=== PATIENT | female | born 1930 | race Caucasian/White ===

== ENCOUNTER 2019-12-28 10:59 | Inpatient (IN) ==
[2019-12-28] MEDS ORDERED: Albuterol/Ipratropium NEB.SOL (2.5/0.5 MG) 3 ML NEB.SOLN INH ONE (11:42)
[2019-12-28 11:52] LABS: ABS Basophils 0.1 10^3/ul (0-0.2); ABS Eosinophils 0.1 10^3/ul (0-0.6); ABS Lymphocytes 0.9 10^3/ul (1.0-4.8); ABS Monocytes 0.3 10^3/ul (0-0.8); ABS Neutrophils 7.7 10^3/ul (1.5-7.7); Eosinophil % 0.7 %; Hematocrit 38 % (35-47); Hemoglobin 12.9 g/dL (12.0-16.0); Lymphocyte % 10.1 %; Mean Corpuscular HGB Conc 34 g/dL (31-36); Mean Corpuscular Hemoglobin 29 pg (27-31); Mean Corpuscular Volume 85 fL (80-97); Mean Platelet Volume 10.1 fL (7.4-10.4); Platelet Count 165 10^3/uL (150-450); Red Cell Distribution Width 15 % (10-15)
[2019-12-28 12:09] LABS: ALT 30 U/L (7-52); AST 47 U/L (13-39); Albumin 4.6 g/dL (3.2-5.2); Albumin/Globulin Ratio 1.9 (1-3); Alkaline Phosphatase 77 U/L (34-104); Anion Gap 7 mmol/L (2-11); BUN/Creatinine Ratio 18.8 (8-20); Blood Urea Nitrogen 18 mg/dL (6-24); CO2 Carbon Dioxide 27 mmol/L (22-32); Calcium 9.6 mg/dL (8.6-10.3); Chloride 101 mmol/L (101-111); EGFR African American 66.5 (>60); Globulin 2.4 g/dL (2-4); Glucose 129 mg/dL (70-100); Potassium 4.4 mmol/L (3.5-5.0); Sodium 135 mmol/L (135-145)
[2019-12-28 12:14] LABS: Troponin I 6.19 ng/mL (<0.03)
[2019-12-28] MEDS ORDERED: Heparin - STEMI 5,000 UNITS/ML 1 ml VIAL IV ONE (12:24)
[2019-12-28 12:39] LABS: C Reactive Protein 1.72 mg/L (<8.01)
[2019-12-28] MEDS ORDERED: Heparin DRIP 25,000 UNITS BAG 25,000 UNITS/500 ML BAG IV SCH (13:15)
[2019-12-28] MEDS ORDERED: Albuterol/Ipratropium NEB.SOL (2.5/0.5 MG) 3 ML NEB.SOLN INH PRN (13:36)
[2019-12-28 13:42] LABS: ABS Basophils 0.1 10^3/ul (0-0.2); ABS Monocytes 0.5 10^3/ul (0-0.8); ABS Neutrophils 12.4 10^3/ul (1.5-7.7); Eosinophil % 0.3 %; Hematocrit 37 % (35-47); Lymphocyte % 7.2 %; Mean Corpuscular HGB Conc 33 g/dL (31-36); Mean Corpuscular Hemoglobin 28 pg (27-31); Mean Corpuscular Volume 86 fL (80-97); Mean Platelet Volume 10.1 fL (7.4-10.4); Platelet Count 173 10^3/uL (150-450); Red Cell Distribution Width 15 % (10-15)
[2019-12-28] MEDS ORDERED: Perflutren Lipid Microsphere 3 ML VIAL ONE (13:58)
[2019-12-28 13:59] LABS: EGFR African American 67.3 (>60); EGFR Non-African American 55.6 (>60)
[2019-12-28] MEDS ORDERED: nitroGLYCERIN DRIP 25,000 MCG/250 ML BTL IV ONE (14:44)
[2019-12-28] MEDS ORDERED: Furosemide 20 mg/2 ml IV VIAL IV SLOW PU ONE (14:51)
[2019-12-28 15:01] LABS: Troponin I 7.04 ng/mL (<0.03)
[2019-12-28 15:19] LABS: Activated Partial Thrombo Time >240.0 seconds (26.0-38.0)
[2019-12-28 15:29] LABS: Erythrocyte Sed Rate 19 mm/Hr (0-29)
[2019-12-28 17:20] LABS: Urine Appearance Clear; Urine Bilirubin Negative (Negative); Urine Blood Negative (Negative); Urine Color Yellow; Urine Glucose Negative (Negative); Urine Ketones Negative (Negative); Urine Nitrite Negative (Negative); Urine Protein Negative (Negative); Urine Specific Gravity 1.009 (1.010-1.030); Urine Urobilinogen Negative (Negative)
[2019-12-28 18:41] LABS: Troponin I 5.95 ng/mL (<0.03)
[2019-12-28 21:27] LABS: Troponin I 6.36 ng/mL (<0.03)
[2019-12-29 01:07] LABS: Troponin I 6.06 ng/mL (<0.03)
[2019-12-29 05:55] LABS: ABS Eosinophils 0.1 10^3/ul (0-0.6); ABS Lymphocytes 1.2 10^3/ul (1.0-4.8); ABS Monocytes 0.8 10^3/ul (0-0.8); ABS Neutrophils 9.3 10^3/ul (1.5-7.7); Eosinophil % 0.9 %; Hematocrit 31 % (35-47); Hemoglobin 10.6 g/dL (12.0-16.0); Lymphocyte % 10.3 %; Mean Corpuscular HGB Conc 34 g/dL (31-36); Mean Corpuscular Hemoglobin 29 pg (27-31); Mean Corpuscular Volume 85 fL (80-97); Platelet Count 156 10^3/uL (150-450); Red Blood Count 3.67 10^6 /uL (3.70-4.87); Red Cell Distribution Width 14 % (10-15); White Blood Count 11.5 10^3/uL (3.5-10.8)
[2019-12-29 06:11] LABS: BUN/Creatinine Ratio 19.8 (8-20); Calcium 8.9 mg/dL (8.6-10.3); EGFR African American 62.7 (>60); EGFR Non-African American 51.8 (>60); Magnesium 2.2 mg/dL (1.9-2.7)
[2019-12-29] MEDS ORDERED: Furosemide 20 mg/2 ml IV VIAL IV ONE (08:36)
[2019-12-29] MEDS ORDERED: Aspirin EC 81 mg TAB.EC (enteric coated) PO SCH (09:00)
[2019-12-29] MEDS ORDERED: diPHENhydraMINE 25 mg TAB PO PRN (11:08)
[2019-12-29] MEDS ORDERED: Lidocaine 1% VIAL 10 MG/ML VIAL ONE (11:38)
[2019-12-29] MEDS ORDERED: Iodixanol 320 (CONTRAST) 100 ML SDV ONE ×2 (11:38)
[2019-12-29] MEDS ORDERED: Heparin 2 UNITS/ML 1000 mls 2,000 ML IV ONE (11:38)
[2019-12-29] MEDS ORDERED: fentaNYL 100 mcg/2 ml 50 MCG/ML VIAL ONE (11:40)
[2019-12-29] MEDS ORDERED: Heparin 1,000 UNIT/ML 10 ml (10,000 UNITS) CATHLAB/DIALYSIS ONE (11:40)
[2019-12-29] MEDS ORDERED: nitroGLYCERIN DRIP 25,000 MCG/250 ML BTL ONE (11:40)
[2019-12-29] MEDS ORDERED: Midazolam 5 mg/5 ml VIAL 1 mg/ml 5 ml VIAL (5 mg) ONE (11:40)
[2019-12-29] MEDS ORDERED: VERAPAMIL 2.5 MG/ML 2 ML VIAL ** 5 mg/2 ml ONE (11:40)
[2019-12-29] MEDS ORDERED: NS 0.9% 1000 ml BAG 1,000 ML IV SCH (12:30)
[2019-12-29 17:19] VITALS: BP 128/69
== END 2019-12-29 18:20 | disposition short-term general hospital (02) | DRG 286 ==
LOC: ED 10:59 → ICU 13:32
PROVIDERS: ADMIT Hospitalist; ATTEND Surgery Surgical Critical Care

== ENCOUNTER 2020-03-17 21:35 | Inpatient (IN) ==
[2020-03-17] MEDS ORDERED: methylPREDNISolone 125 mg 2 ML VIAL IV ONE (22:22)
[2020-03-17] MEDS ORDERED: Albuterol 0.5% CONC NEB.SOL 5 mg/ml 20 ml BOT INH ONE (22:22)
[2020-03-17 23:38] LABS: ABS Eosinophils 0.1 10^3/ul (0-0.6); ABS Lymphocytes 1.1 10^3/ul (1.0-4.8); ABS Neutrophils 10.2 10^3/ul (1.5-7.7); Eosinophil % 0.9 %; Hematocrit 32 % (35-47); Hemoglobin 10.5 g/dL (12.0-16.0); Lymphocyte % 9.2 %; Mean Corpuscular HGB Conc 33 g/dL (31-36); Mean Corpuscular Hemoglobin 28 pg (27-31); Mean Corpuscular Volume 84 fL (80-97); Mean Platelet Volume 10.3 fL (7.4-10.4); Platelet Count 181 10^3/uL (150-450); Red Blood Count 3.77 10^6 /uL (3.70-4.87); Red Cell Distribution Width 16 % (10-15); White Blood Count 12.5 10^3/uL (3.5-10.8)
[2020-03-17 23:55] LABS: Albumin 4.3 g/dL (3.2-5.2); Albumin/Globulin Ratio 1.8 (1-3); Calcium 9.7 mg/dL (8.6-10.3); EGFR African American 80.9 (>60); EGFR Non-African American 66.9 (>60); Globulin 2.4 g/dL (2-4); Potassium 4.1 mmol/L (3.5-5.0); Total Bilirubin 0.6 mg/dL (0.2-1.0); Total Protein 6.7 g/dL (6.4-8.9)
[2020-03-17 23:56] LABS: Troponin I 0.01 ng/mL (<0.03)
[2020-03-17] MEDS ORDERED: Albuterol HFA INHALER 8 gm MDI INH ONE (23:57)
[2020-03-18] MEDS ORDERED: Furosemide 40 mg/4 ml IV VIAL IV ONE (04:55)
[2020-03-18] MEDS ORDERED: Albuterol HFA INHALER 8 gm MDI INH PRN (05:00)
[2020-03-18] MEDS: Albuterol/Ipratropium NEB.SOL (2.5/0.5 MG) 3 ML NEB.SOLN INH PRN ×2 (07:01→17:50)
[2020-03-18] MEDS ORDERED: methylPREDNISolone SOD 40 mg/ml 1 ml VIAL IV SCH (08:00)
[2020-03-18] MEDS: Tiotropium Brom/Olodaterol MDI INH SCH (10:27)
[2020-03-18] MEDS: Fluticasone NASAL SPRAY 50MCG 16 gm SPRAY BTL BOTH NARES SCH (10:59)
[2020-03-18 11:55] LABS: BUN/Creatinine Ratio 15.9 (8-20); Calcium 9.7 mg/dL (8.6-10.3); EGFR African American 73.5 (>60); EGFR Non-African American 60.8 (>60); Potassium 4.5 mmol/L (3.5-5.0)
[2020-03-18] MEDS: Aspirin EC 81 mg TAB.EC (enteric coated) PO SCH (13:06)
[2020-03-18] MEDS: Mupirocin 2% OINT TUBE TOPICAL SCH ×2 (13:06→20:58)
[2020-03-19 06:31] LABS: ABS Lymphocytes 0.7 10^3/ul (1.0-4.8); ABS Monocytes 1.1 10^3/ul (0-0.8); Eosinophil % 0.2 %; Hematocrit 26 % (35-47); Lymphocyte % 6.2 %; Mean Corpuscular HGB Conc 35 g/dL (31-36); Mean Corpuscular Hemoglobin 28 pg (27-31); Mean Corpuscular Volume 82 fL (80-97); Mean Platelet Volume 10.1 fL (7.4-10.4); Platelet Count 164 10^3/uL (150-450); Red Blood Count 3.17 10^6 /uL (3.70-4.87); Red Cell Distribution Width 16 % (10-15); White Blood Count 10.9 10^3/uL (3.5-10.8)
[2020-03-19 06:46] LABS: Calcium 8.8 mg/dL (8.6-10.3); EGFR Non-African American 49.6 (>60); Potassium 4.1 mmol/L (3.5-5.0)
[2020-03-19] MEDS: Tiotropium Brom/Olodaterol MDI INH SCH (08:04)
[2020-03-19] MEDS: Fluticasone NASAL SPRAY 50MCG 16 gm SPRAY BTL BOTH NARES SCH (08:23)
[2020-03-19] MEDS: Aspirin EC 81 mg TAB.EC (enteric coated) PO SCH (08:23)
[2020-03-19] MEDS: Mupirocin 2% OINT TUBE TOPICAL SCH (08:24)
[2020-03-19 11:54] VITALS: BP 112/52
== END 2020-03-19 12:28 | disposition home or self-care (01) | DRG 292 ==
LOC: ED 21:35 → MED 03-18 08:22
PROVIDERS: ADMIT Internal Medicine; ATTEND Internal Medicine

== ENCOUNTER 2020-07-03 07:18 | Observation (INO) ==
[2020-07-03] MEDS ORDERED: Albuterol/Ipratropium NEB.SOL (2.5/0.5 MG) 3 ML NEB.SOLN ONE (07:24)
[2020-07-03] MEDS ORDERED: Albuterol/Ipratropium NEB.SOL (2.5/0.5 MG) 3 ML NEB.SOLN INH ONE (07:24)
[2020-07-03] MEDS ORDERED: methylPREDNISolone 125 mg 2 ML VIAL ONE (07:24)
[2020-07-03] MEDS ORDERED: methylPREDNISolone 125 mg 2 ML VIAL IV ONE (07:24)
[2020-07-03] MEDS ORDERED: Rocuronium 50 mg VIAL 10 mg/ml 5 ml VIAL (50 mg) ONE (07:44)
[2020-07-03] MEDS ORDERED: Succinylcholine 200 mg VIAL 20 mg/ml 10 ml VIAL (200 mg) ONE (07:44)
[2020-07-03 07:49] LABS: ABS Eosinophils 0.1 10^3/ul (0-0.6); ABS Lymphocytes 0.7 10^3/ul (1.0-4.8); ABS Monocytes 0.6 10^3/ul (0-0.8); ABS Neutrophils 12.2 10^3/ul (1.5-7.7); Eosinophil % 0.9 %; Hematocrit 31 % (35-47); Hemoglobin 10.2 g/dL (12.0-16.0); Lymphocyte % 5.3 %; Mean Corpuscular HGB Conc 33 g/dL (31-36); Mean Corpuscular Hemoglobin 27 pg (27-31); Mean Corpuscular Volume 83 fL (80-97); Mean Platelet Volume 9.5 fL (7.4-10.4); Platelet Count 210 10^3/uL (150-450); Red Blood Count 3.73 10^6 /uL (3.70-4.87); Red Cell Distribution Width 17 % (10-15); White Blood Count 13.7 10^3/uL (3.5-10.8)
[2020-07-03 08:05] LABS: ALT 22 U/L (7-52); Albumin 3.8 g/dL (3.2-5.2); Albumin/Globulin Ratio 1.4 (1-3); Alkaline Phosphatase 118 U/L (34-104); BUN/Creatinine Ratio 14.3 (8-20); Blood Urea Nitrogen 13 mg/dL (6-24); CO2 Carbon Dioxide 25 mmol/L (22-32); Calcium 8.7 mg/dL (8.6-10.3); Chloride 88 mmol/L (101-111); EGFR African American 70.8 (>60); EGFR Non-African American 58.5 (>60); Globulin 2.7 g/dL (2-4); Glucose 123 mg/dL (70-100); Sodium 121 mmol/L (135-145); Total Protein 6.5 g/dL (6.4-8.9)
[2020-07-03] MEDS ORDERED: Furosemide 40 mg/4 ml IV VIAL IV SLOW PU ONE (08:23)
[2020-07-03 08:44] LABS: Anion Gap 8 mmol/L (2-11); Troponin I 0.03 ng/mL (<0.03)
[2020-07-03 09:07] LABS: Potassium Redraw 3.5 mmol/L (3.5-5.0)
[2020-07-03] MEDS ORDERED: Ondansetron 4 mg VIAL 2 MG/ML 2 ml VIAL IV PRN (10:03)
[2020-07-03] MEDS ORDERED: Albuterol 2.5mg/3 ml (0.083%) NEB.SOLN INH PRN (10:03)
[2020-07-03] MEDS ORDERED: Acetaminop/Codeine 300mg/30mg TAB PO PRN (10:15)
[2020-07-03] MEDS ORDERED: AZELASTINE 0.15% BOTH NARES PRN (10:15)
[2020-07-03] MEDS ORDERED: Albuterol HFA INHALER 8 gm MDI INH PRN (10:31)
[2020-07-03 10:51] LABS: C Reactive Protein 10.08 mg/L (<8.01)
[2020-07-03 11:04] LABS: Urine Appearance Cloudy; Urine Bilirubin Negative (Negative); Urine Blood Negative (Negative); Urine Color Yellow; Urine Glucose Negative (Negative); Urine Ketones Negative (Negative); Urine Nitrite Negative (Negative); Urine Protein Negative (Negative); Urine Specific Gravity 1.006 (1.010-1.030); Urine Urobilinogen Negative (Negative)
[2020-07-03 11:11] LABS: Ur Urea Nitrogen Concentration 316 mg/dL; Urine Bacteria Absent (Absent); Urine Creatinine Concentration 49.44 mg/dL; Urine Red Blood Cell Absent (Absent); Urine Sodium Concentration < 18 mmol/L; Urine Squamous Epithelial Cell Present (Absent); Urine White Blood Cell Trace(0-5/hpf) (Absent)
[2020-07-03 11:48] LABS: % Iron Saturation 13 % (15-55); Iron 40 ug/dL (50-212); Total Iron Binding Capacity 301 mcg/dL (250-450); Transferrin 215 mg/dL (203-362); Unsaturated Iron Binding < 286 ug/dL
[2020-07-03 12:08] LABS: Ferritin 80.3 ng/mL (11-307)
[2020-07-03 12:10] LABS: Anion Gap 10 mmol/L (2-11); BUN/Creatinine Ratio 13.7 (8-20); Blood Urea Nitrogen 13 mg/dL (6-24); CO2 Carbon Dioxide 26 mmol/L (22-32); Chloride 90 mmol/L (101-111); EGFR African American 67.3 (>60); EGFR Non-African American 55.6 (>60); Glucose 181 mg/dL (70-100); Potassium 3.6 mmol/L (3.5-5.0); Sodium 126 mmol/L (135-145)
[2020-07-03 12:18] LABS: Troponin I 0.03 ng/mL (<0.03)
[2020-07-03] MEDS: DOXYcycline 100 MG in NS 0.9% 250 ml 250 ML IVPB SCH ×2 (13:12→23:49)
[2020-07-03] MEDS: Enoxaparin 40 MG/0.4 ML SYR SUBCUT SCH (13:13)
[2020-07-03] MEDS: Albuterol/Ipratropium NEB.SOL (2.5/0.5 MG) 3 ML NEB.SOLN INH SCH ×4 (14:28→23:02)
[2020-07-04] MEDS: Albuterol/Ipratropium NEB.SOL (2.5/0.5 MG) 3 ML NEB.SOLN INH SCH ×3 (03:26→11:22)
[2020-07-04 07:40] LABS: ABS Lymphocytes 0.7 10^3/ul (1.0-4.8); ABS Monocytes 0.9 10^3/ul (0-0.8); ABS Neutrophils 9.8 10^3/ul (1.5-7.7); Eosinophil % 0.1 %; Hematocrit 27 % (35-47); Hemoglobin 9.3 g/dL (12.0-16.0); Lymphocyte % 6.3 %; Mean Corpuscular HGB Conc 34 g/dL (31-36); Mean Corpuscular Hemoglobin 28 pg (27-31); Mean Corpuscular Volume 81 fL (80-97); Mean Platelet Volume 9.8 fL (7.4-10.4); Platelet Count 179 10^3/uL (150-450); Red Blood Count 3.31 10^6 /uL (3.70-4.87); Red Cell Distribution Width 17 % (10-15); White Blood Count 11.4 10^3/uL (3.5-10.8)
[2020-07-04 07:55] LABS: BUN/Creatinine Ratio 21.6 (8-20); C Reactive Protein 19.65 mg/L (<8.01); Calcium 8.6 mg/dL (8.6-10.3); EGFR African American 73.5 (>60); EGFR Non-African American 60.8 (>60); Magnesium 1.8 mg/dL (1.9-2.7); Potassium 3.4 mmol/L (3.5-5.0)
[2020-07-04] MEDS ORDERED: Tiotropium Brom/Olodaterol MDI INH SCH (09:00)
[2020-07-04] MEDS ORDERED: Potassium Chlor 20 meq TAB.ER PO SCH (09:00)
[2020-07-04] MEDS ORDERED: MAGNESIUM 250 MG PO SCH (09:00)
[2020-07-04] MEDS ORDERED: Cholecalciferol (VIT D3) 1,000 unit TAB PO SCH ×2 (09:00)
[2020-07-04] MEDS ORDERED: Fluticasone NASAL SPRAY 50MCG 16 gm SPRAY BTL BOTH NARES SCH (09:00)
[2020-07-04] MEDS ORDERED: CMC:OMEGA-3 FATTY ACID 1000 mg(NF) PO SCH ×2 (09:00→09:13)
[2020-07-04] MEDS ORDERED: Aspirin EC 81 mg TAB.EC (enteric coated) PO SCH (09:00)
[2020-07-04] MEDS ORDERED: Potassium Chlor 20 meq TAB.ER PO ONE (09:34)
[2020-07-04] MEDS ORDERED: Magnesium Sulfate IV 1GM/100ML 1 GM/100 ML BAG IV ONE (09:34)
[2020-07-04 09:52] VITALS: BP 134/55
[2020-07-04] MEDS: Enoxaparin 40 MG/0.4 ML SYR SUBCUT SCH (11:11)
== END 2020-07-04 11:20 | disposition home or self-care (01) ==
LOC: ED 07:18 → MED 07:18
PROVIDERS: ADMIT Hospitalist; ATTEND Student in an Organized Health Care Education/Training Program

== ENCOUNTER 2021-03-11 04:20 | Inpatient (IN) ==
[2021-03-11 05:34] LABS: Hematocrit 30 % (35-47); Hemoglobin 9.9 g/dL (12.0-16.0); Mean Corpuscular HGB Conc 33 g/dL (31-36); Mean Corpuscular Hemoglobin 27 pg (27-31); Mean Corpuscular Volume 82 fL (80-97); Mean Platelet Volume 9.7 fL (7.4-10.4); Platelet Count 233 10^3/uL (150-450); Red Blood Count 3.64 10^6 /uL (3.70-4.87); Red Cell Distribution Width 17 % (10-15); White Blood Count 24.8 10^3/uL (3.5-10.8)
[2021-03-11 05:52] LABS: ALT 30 U/L (7-52); AST 26 U/L (13-39); Albumin 3.6 g/dL (3.2-5.2); Albumin/Globulin Ratio 1.4 (1-3); Alkaline Phosphatase 68 U/L (35-149); Anion Gap 7 mmol/L (2-11); Blood Urea Nitrogen 26 mg/dL (6-24); C Reactive Protein 96.74 mg/L (<8.01); CO2 Carbon Dioxide 28 mmol/L (22-32); Calcium 8.9 mg/dL (8.6-10.3); Chloride 95 mmol/L (101-111); Globulin 2.6 g/dL (2-4); Glucose 101 mg/dL (70-100); Sodium 130 mmol/L (135-145); Total Protein 6.2 g/dL (6.4-8.9); eGFR CKD-EPI 48.3 (>60)
[2021-03-11] MEDS ORDERED: Azithromycin 500 mg/250 ml NS 500 MG/250 ML BAG IVPB ONE (05:54)
[2021-03-11] MEDS ORDERED: cefTRIAXone 1 gm/50 mL NS BAG 1 GM/50 ML BAG IV ONE (05:54)
[2021-03-11 06:04] LABS: Influenza A Molecular Negative (Negative); Influenza B Molecular Negative (Negative); Rapid COVID-19 Molecular Undetected (Undetected)
[2021-03-11 06:08] LABS: ABS Eosinophils 0.1 10^3/ul (0-0.6); ABS Lymphocytes 1.5 10^3/ul (1.0-4.8); ABS Monocytes 1.8 10^3/ul (0-0.8); ABS Neutrophils 21.5 10^3/ul (1.5-7.7); Eosinophil % 0.3 %
[2021-03-11] MEDS ORDERED: Furosemide 40 mg/4 ml IV VIAL IV ONE (07:54)
[2021-03-11] MEDS: Aspirin EC 81 mg TAB.EC (enteric coated) PO SCH (08:45)
[2021-03-11 08:47] LABS: Troponin I 0.31 ng/mL (<0.03)
[2021-03-11] MEDS: Potassium Chlor 20 meq TAB.ER PO SCH ×2 (08:48→08:56)
[2021-03-11] MEDS ORDERED: Umeclidin/Vilant 62.5 MDI 62.5/25 mcg 14 INH ELLIPTA DEVICE INH SCH (09:00)
[2021-03-11] MEDS: Tiotropium Brom/Olodaterol MDI INH SCH (11:30)
[2021-03-11] MEDS: Heparin 5000 UNITS/ML 1 mL VIAL SUBCUT SCH ×2 (15:15→20:34)
[2021-03-12] MEDS: Heparin 5000 UNITS/ML 1 mL VIAL SUBCUT SCH (06:18)
[2021-03-12 07:06] LABS: Hematocrit 27 % (35-47); Mean Corpuscular HGB Conc 34 g/dL (31-36); Mean Corpuscular Hemoglobin 28 pg (27-31); Mean Corpuscular Volume 83 fL (80-97); Red Blood Count 3.26 10^6 /uL (3.70-4.87); Red Cell Distribution Width 17 % (10-15); White Blood Count 16.2 10^3/uL (3.5-10.8)
[2021-03-12 07:12] LABS: Calcium 8.7 mg/dL (8.6-10.3); Potassium 4.4 mmol/L (3.5-5.0); eGFR CKD-EPI 52.3 (>60)
[2021-03-12 08:29] LABS: ABS Eosinophils 0.1 10^3/ul (0-0.6); ABS Lymphocytes 0.7 10^3/ul (1.0-4.8); ABS Monocytes 0.9 10^3/ul (0-0.8); ABS Neutrophils 14.4 10^3/ul (1.5-7.7); Eosinophil % 0.7 %; Lymphocyte % 4.6 %; Mean Platelet Volume 9.3 fL (7.4-10.4); Platelet Count 191 10^3/uL (150-450)
[2021-03-12] MEDS: Tiotropium Brom/Olodaterol MDI INH SCH (08:32)
[2021-03-12] MEDS: Potassium Chlor 20 meq TAB.ER PO SCH (08:38)
[2021-03-12] MEDS: Aspirin EC 81 mg TAB.EC (enteric coated) PO SCH (08:39)
[2021-03-12] MEDS: cefTRIAXone 1 gm/50 mL NS BAG 1 GM/50 ML BAG IVPB SCH (08:39)
[2021-03-12] MEDS: Azithromycin 500 mg/250 ml NS 500 MG/250 ML BAG IVPB SCH (08:39)
[2021-03-12] MEDS: Enoxaparin 40 MG/0.4 ML SYR SUBCUT SCH (08:47)
[2021-03-12 11:16] LABS: % Iron Saturation 8 % (15-55); Iron 20 ug/dL (50-212); Total Iron Binding Capacity 252 mcg/dL (250-450); Transferrin 180 mg/dL (203-362); Unsaturated Iron Binding < 237 ug/dL
[2021-03-12 11:36] LABS: Ferritin 190.6 ng/mL (11-307)
[2021-03-12] MEDS: Albuterol HFA INHALER 8 gm MDI INH PRN (13:02)
[2021-03-12] MEDS: Fluticasone NASAL SPRAY 50MCG 16 gm SPRAY BTL BOTH NARES PRN (20:49)
[2021-03-13] MEDS: Fluticasone NASAL SPRAY 50MCG 16 gm SPRAY BTL BOTH NARES PRN ×3 (05:24→20:00)
[2021-03-13 05:38] LABS: ABS Eosinophils 0.1 10^3/ul (0-0.6); ABS Lymphocytes 0.7 10^3/ul (1.0-4.8); ABS Monocytes 0.9 10^3/ul (0-0.8); ABS Neutrophils 14.6 10^3/ul (1.5-7.7); Eosinophil % 0.5 %; Hematocrit 26 % (35-47); Hemoglobin 8.6 g/dL (12.0-16.0); Lymphocyte % 4.4 %; Mean Corpuscular HGB Conc 33 g/dL (31-36); Mean Corpuscular Hemoglobin 27 pg (27-31); Mean Corpuscular Volume 82 fL (80-97); Platelet Count 214 10^3/uL (150-450); Red Blood Count 3.14 10^6 /uL (3.70-4.87); Red Cell Distribution Width 16 % (10-15); White Blood Count 16.4 10^3/uL (3.5-10.8)
[2021-03-13 05:51] LABS: Calcium 8.5 mg/dL (8.6-10.3); Magnesium 2.1 mg/dL (1.9-2.7); Potassium 3.6 mmol/L (3.5-5.0); eGFR CKD-EPI 40.3 (>60)
[2021-03-13] MEDS: Tiotropium Brom/Olodaterol MDI INH SCH (07:45)
[2021-03-13] MEDS: Enoxaparin 40 MG/0.4 ML SYR SUBCUT SCH (08:05)
[2021-03-13] MEDS: cefTRIAXone 1 gm/50 mL NS BAG 1 GM/50 ML BAG IVPB SCH (08:06)
[2021-03-13] MEDS: Aspirin EC 81 mg TAB.EC (enteric coated) PO SCH (08:12)
[2021-03-13] MEDS: Potassium Chlor 20 meq TAB.ER PO SCH (08:12)
[2021-03-13] MEDS: Azithromycin 500 mg/250 ml NS 500 MG/250 ML BAG IVPB SCH (08:55)
[2021-03-14] MEDS: Potassium Chlor 20 meq TAB.ER PO SCH (07:51)
[2021-03-14] MEDS: Aspirin EC 81 mg TAB.EC (enteric coated) PO SCH (07:52)
[2021-03-14] MEDS: cefTRIAXone 1 gm/50 mL NS BAG 1 GM/50 ML BAG IVPB SCH (07:53)
[2021-03-14] MEDS: Enoxaparin 30 MG/0.3 ML SYR SUBCUT SCH (07:53)
[2021-03-14] MEDS: Fluticasone NASAL SPRAY 50MCG 16 gm SPRAY BTL BOTH NARES PRN ×2 (07:53→21:17)
[2021-03-14] MEDS: Tiotropium Brom/Olodaterol MDI INH SCH (08:22)
[2021-03-14] MEDS: Azithromycin 500 mg/250 ml NS 500 MG/250 ML BAG IVPB SCH (10:35)
[2021-03-14] MEDS: Albuterol HFA INHALER 8 gm MDI INH PRN (12:07)
[2021-03-15 05:34] LABS: ABS Eosinophils 0.1 10^3/ul (0-0.6); ABS Lymphocytes 0.8 10^3/ul (1.0-4.8); ABS Monocytes 0.9 10^3/ul (0-0.8); ABS Neutrophils 9.8 10^3/ul (1.5-7.7); Hematocrit 27 % (35-47); Hemoglobin 8.9 g/dL (12.0-16.0); Lymphocyte % 7.2 %; Mean Corpuscular HGB Conc 33 g/dL (31-36); Mean Corpuscular Hemoglobin 27 pg (27-31); Mean Corpuscular Volume 82 fL (80-97); Mean Platelet Volume 8.6 fL (7.4-10.4); Platelet Count 225 10^3/uL (150-450); Red Blood Count 3.26 10^6 /uL (3.70-4.87); Red Cell Distribution Width 16 % (10-15); White Blood Count 11.7 10^3/uL (3.5-10.8)
[2021-03-15 05:45] LABS: Calcium 8.6 mg/dL (8.6-10.3); Potassium 4.1 mmol/L (3.5-5.0); eGFR CKD-EPI 40.7 (>60)
[2021-03-15] MEDS: Tiotropium Brom/Olodaterol MDI INH SCH (07:41)
[2021-03-15] MEDS: Enoxaparin 30 MG/0.3 ML SYR SUBCUT SCH (08:42)
[2021-03-15] MEDS: Potassium Chlor 20 meq TAB.ER PO SCH (08:42)
[2021-03-15] MEDS: Aspirin EC 81 mg TAB.EC (enteric coated) PO SCH (08:43)
[2021-03-15] MEDS: cefTRIAXone 1 gm/50 mL NS BAG 1 GM/50 ML BAG IVPB SCH (08:43)
[2021-03-15] MEDS: Azithromycin 500 mg/250 ml NS 500 MG/250 ML BAG IVPB SCH (09:37)
[2021-03-16] MEDS: Tiotropium Brom/Olodaterol MDI INH SCH (07:25)
[2021-03-16] MEDS: cefTRIAXone 1 gm/50 mL NS BAG 1 GM/50 ML BAG IVPB SCH (08:04)
[2021-03-16] MEDS: Aspirin EC 81 mg TAB.EC (enteric coated) PO SCH (08:05)
[2021-03-16] MEDS: Enoxaparin 30 MG/0.3 ML SYR SUBCUT SCH (08:06)
[2021-03-16] MEDS: Potassium Chlor 20 meq TAB.ER PO SCH (08:06)
[2021-03-16] MEDS: Azithromycin 500 mg/250 ml NS 500 MG/250 ML BAG IVPB SCH (08:48)
[2021-03-16 11:44] VITALS: BP 119/51
[2021-03-16 11:46] LABS: Rapid COVID-19 Molecular Undetected (Undetected)
== END 2021-03-16 14:45 | DRG 193 ==
LOC: ED 04:20 → EDHOLD 07:46 → MED 10:34
PROVIDERS: ADMIT Hospitalist; ATTEND Internal Medicine